=== PATIENT | male | born 1985 | race Caucasian/White ===

== ENCOUNTER 2019-07-17 07:44 | Emergency (ER) | payer OTHER ==
[~2019-07-17] VITALS: Ht 193 cm; Wt 79.4 kg
[2019-07-17 08:55] LABS: INFLUENZA A ANTIGEN Negative (Negative); INFLUENZA B ANTIGEN Negative (Negative)
[2019-07-17 09:17] LABS: CALCIUM 9.5 mg/dL (8.5-10.1); CREATININE 1.1 mg/dL (0.6-1.3)
[2019-07-17] MEDS ORDERED: TESSALON PERLE100 M1 PO (09:46)
[2019-07-17 09:59] VITALS: BP 118/82
--- NOTE | 2019-07-17 15:54 | EKG ---
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
== END 2019-07-17 10:00 | disposition home or self-care (01) ==
LOC: M.ERS 07:44
PROVIDERS: Emergency Medicine Emergency Medical Services
DX: R09.1 Pleurisy (principal)